=== PATIENT | female | born 1960 | race Caucasian/White ===

== ENCOUNTER 2016-12-10 09:58 | Emergency (ER) | payer BC, OTHER ==
[~2016-12-10] VITALS: Ht 170.2 cm; Wt 74.8 kg
[~2016-12-10 09:58] MED LIST: IBUPROFEN 800800 MG PO; NOHOMEMEDICATIONS; PHENERGAN 25 MG25 M1 PO; PREVACID 30MG C30 M1 PG
[2016-12-10] MEDS ORDERED: IBUPROFEN 600600 M1 PO ×3 (11:37→11:40)
[2016-12-10 12:27] VITALS: BP 131/63
== END 2016-12-10 12:28 | disposition home or self-care (01) ==
LOC: ER 09:58
DX: M25.532 Pain in left wrist (principal); I10 Essential (primary) hypertension; E11.9 Type 2 diabetes mellitus without complications; E78.5 Hyperlipidemia, unspecified; W01.0XXA Fall on same level from slipping, tripping and stumbling without subsequent striking against object, initial encounter; Y93.89 Activity, other specified; Y92.89 Other specified places as the place of occurrence of the external cause; Y99.8 Other external cause status

== ENCOUNTER 2017-05-25 08:56 | Emergency (ER) | payer BC, OTHER ==
[~2017-05-25] VITALS: Ht 160 cm; Wt 72.1 kg
--- NOTE | ~2017-05-25 | EKG ---
[place] [address] [address] (by is[employer]ank[employer])[facility] [place] [address] ELECTROCARDIOGRAM REPORT Name: JOYCELUANABRADLY Bautista Room #: DEP [facility]#: [id number] Admission: 05/25/17 Attend Phys: Discharge: 05/25/17 Date of : 64 Report #: [id number] THIS REPORT FOR: //name// 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: [facility] : 1960 Requested By: Tana Durham Order Number: [id number] MD: West Melendrez Measurements Intervals [place] Rate: 58 P: 24 NM: 142 QRS: -3 QRSD: 93 T: 32 QT: 391 QTc: 385 Interpretive Statements Sinus rhythm Nonspecific T wave abnormality Compared to ECG 10/30/2014 12:21:49 No significant change was found Electronically Signed On 05-26-2017 13:43:38 CDT by West Melendrez [email or web address] <ELECTRONICALLY SIGNED> By: West Melendrez MD, [facility] 05/26/17 1343 4 4 West Melendrez MD, [facility] /EPI
[~2017-05-25 08:56] MED LIST changes: +IBUPROFEN 600600 M1 PO
[2017-05-25] MEDS ORDERED: METFORMIN HCL500 MG PO (09:12)
[2017-05-25] MEDS ORDERED: LIPITOR 20 MG T20 M1 PO (09:13)
[2017-05-25] MEDS ORDERED: LISINOPRIL5 MG PO (09:13)
[2017-05-25 09:35] LABS: ABSOLUTE NEUTROPHILS 6.5 thou/uL (1.4-8.2); BASOPHILS 0.4 % (0.0-2.0); EOSINOPHILS 0.5 % (0.0-3.0); HEMATOCRIT 39.3 % (37.0-47.0); LYMPHOCYTES 17.3 % (24.0-44.0); MCHC 33.1 g/dL (28.0-37.0); MCV 84.6 fL (80.0-100.0); MONOCYTES 3.9 % (1.0-8.0); PLATELET COUNT 227 thou/uL (150-400); POLYS 77.9 % (36.0-66.0); RBC 4.65 mil/uL (4.20-5.00); RDW 14.4 % (10.5-14.5); WBC 8.3 thou/uL (4.0-11.0)
[2017-05-25 09:41] LABS: ANION GAP 8 mmol/L (7-16); BUN 15 mg/dL (7-18); CALCIUM 9.1 mg/dL (8.5-10.1); CHLORIDE 106 mmol/L (98-107); CO2 29 mmol/L (21-32); CREATININE 0.7 mg/dL (0.6-1.0); GLUCOSE 135 mg/dL (74-106); POTASSIUM 3.8 mmol/L (3.5-5.1); SODIUM 143 mmol/L (136-145)
[2017-05-25 09:51] LABS: ALBUMIN 3.6 g/dL (3.4-5.0); LIPASE 168 U/L (73-393); SGOT 14 U/L (15-37); SGPT 22 U/L (30-65); TOTAL BILIRUBIN 0.5 mg/dL (<0.1-1.0); TOTAL PROTEIN 7.4 g/dL (6.4-8.2); TROPONIN-I < 0.04 ng/mL (<0.06)
[2017-05-25] MEDS ORDERED: MECLIZINE HCL25 MG PO (10:04)
[2017-05-25] MEDS ORDERED: ONDANSETRON HCL4 M2 PO (10:04)
== END 2017-05-25 10:20 | disposition home or self-care (01) ==
LOC: ER 08:56
PROVIDERS: Physician Assistant
DX: H81.10 Benign paroxysmal vertigo, unspecified ear (principal); R11.0 Nausea; E11.9 Type 2 diabetes mellitus without complications; I10 Essential (primary) hypertension; E78.5 Hyperlipidemia, unspecified

== ENCOUNTER 2018-09-15 14:07 | Emergency (ER) | payer BC, OTHER ==
[~2018-09-15] VITALS: Ht 162.6 cm; Wt 59.0 kg
[~2018-09-15 14:07] MED LIST changes: +LIPITOR 20 MG T20 M1 PO; +LISINOPRIL5 MG PO; +MECLIZINE HCL25 MG PO; +METFORMIN HCL500 MG PO; +ONDANSETRON HCL4 M2 PO
[2018-09-15 14:10] VITALS: BP 126/65
== END 2018-09-15 15:45 | disposition home or self-care (01) ==
LOC: ER 14:07
DX: H11.31 Conjunctival hemorrhage, right eye (principal); E11.9 Type 2 diabetes mellitus without complications; I10 Essential (primary) hypertension; E78.5 Hyperlipidemia, unspecified